=== PATIENT | female | born 1975 | race Caucasian/White ===

== ENCOUNTER 2016-06-06 21:22 | Emergency (ER) | payer MEDICAID, OTHER ==
[2016-06-06 22:01] LABS: ABSOLUTE NEUTROPHIL COUNT 3.9 K/mm3 (1.8-7.7); BASO % 0.4 % (0.2-1.0); EOS # 0.2 (0.0-0.5); HEMATOCRIT 39.8 % (37.0-47.0); HEMOGLOBIN 13.4 gm/l (12.0-16.0); IMM NEUT% 0.4 % (0-1); LYMPH # 2.4 (1.0-4.8); LYMPH % 34.3 % (15-45); MEAN CELL VOLUME 86.1 fl (81.0-99.0); MEAN CORPUSCULAR HGB CONC 33.7 g/dl (33.0-37.0); MEAN PLATELET VOLUME 11.4 fl (7.4-10.4); MONO # 0.4 (0.0-0.8); MONO % 5.6 % (4-12); NEUT % 56.3 % (43-75); PLATELET COUNT 179 K/mm3 (130-400); RED CELL DISTRIBUTION WIDTH 12.2 % (11.5-14.5)
[2016-06-06 22:11] LABS: INR 0.95
[2016-06-06 22:13] LABS: ALB/GLOB RATIO 1.5 (>1.0); ALBUMIN 4.7 gm/dL (3.5-5.7); CALCIUM 9.3 mg/dL (8.6-10.3)
[2016-06-06 22:53] LABS: URINE BILIRUBIN NEGATIVE (NEGATIVE); URINE BLOOD 2+ (NEGATIVE); URINE GLUCOSE (UA) NEGATIVE (NEGATIVE); URINE LEUKOCYTE ESTERASE NEGATIVE (NEGATIVE); URINE NITRITE NEGATIVE (NEGATIVE); URINE PROTEIN NEGATIVE (NEGATIVE); URINE UROBILINOGEN NORMAL (0-1 mg/dl)
[2016-06-06 22:56] LABS: URINE APPEARANCE CLEAR; URINE COLOR YELLOW
[2016-06-06 23:06] LABS: URINE WBC RARE /hpf
[2016-06-06 23:07] LABS: URINE BACTERIA TRACE
[2016-06-06] MEDS ORDERED: SODIUM CHLORIDE 0.9% 1,000 ML ONE (23:09)
== END 2016-06-07 00:29 | disposition home or self-care (01) ==
LOC: ED 21:22
DX: R07.9 Chest pain, unspecified (principal); R42 Dizziness and giddiness
CPT/HCPCS: 85025; 80053; 85610; 84484; 81001; 99284 ×2; 93226; 93225; J7030

== ENCOUNTER 2016-06-14 09:23 | Emergency (ER) | payer OTHER | END 2016-06-14 11:03 | disposition home or self-care (01) | LOC: ED 09:23 | DX: M79.602 Pain in left arm (principal); R20.9 Unspecified disturbances of skin sensation; R42 Dizziness and giddiness; D75.9 Disease of blood and blood-forming organs, unspecified ==